=== PATIENT | female | born 1970 | race Two or more races ===

== ENCOUNTER 2020-02-16 15:45 | Outpatient (REF) | payer OTHER, SELFPAY | END 2020-02-16 15:46 | disposition home or self-care (01) | LOC: HO.LAB 15:45 | PROVIDERS: Visit Provider Internal Medicine | DX: Z20.828 Contact with and (suspected) exposure to other viral communicable diseases (principal) | CPT/HCPCS: U0003 ==

== ENCOUNTER 2020-12-22 11:54 | Outpatient (REF) | payer OTHER, SELFPAY ==
[2020-12-22 13:11] LABS: COVID-19 Test Negative (Negative)
== END 2020-12-22 11:55 | disposition home or self-care (01) ==
LOC: HO.LAB 11:54
PROVIDERS: PCP Internal Medicine; Visit Provider Internal Medicine
DX: Z20.822 Contact with and (suspected) exposure to COVID-19 (principal)
CPT/HCPCS: 36415; 87635; C9803